=== PATIENT | male | born 1925 | race Caucasian/White ===

== ENCOUNTER → 2016-12-21 | Emergency (ER) | payer MEDICARE, BC ==
[~2016-12-21] VITALS: Ht 172.7 cm; Wt 65.8 kg
[~2016-12-21] MED LIST: IV NS 0.9% 0 ML ONE; IV NS 0.9% 500 ML BAG IV ONE; IV NS 0.9% 500 ML IV ONE; IV SET PRIMARY 1 EA INFUS.SET MC ONE; IV SET PRIMARY PUMP SET 1 EA INFUS.SET MC ONE; MECLIZINE HCL 12.5 MG TABLET PO ONE; MECLIZINE HCL 25 MG TABLET ONE; MORPHINE SULFATE INJ 2 MG/ML DISP.SYRIN ONE; ONDANSETRON HCL/PF 4 MG/2 ML VIAL ONE
[2016-12-21 13:19] LABS: BASOPHILS # (AUTO) 0.1 /CMM (0.0-0.2); BASOPHILS % (AUTO) 1.1 % (0.0-2.0); DIFF TOTAL % 100 %; EOSINOPHILS % (AUTO) 0.5 % (0.0-6.0); HEMATOCRIT 43 % (39-51); HEMOGLOBIN 14.3 g/dL (13.5-17.5); LYMPHOCYTES # (AUTO) 1.5 /CMM (0.8-4.8); LYMPHOCYTES % (AUTO) 16.2 % (20.0-44.0); MEAN CORPUSCULAR HEMOGLOBIN 31 PG (26.0-33.0); MEAN CORPUSCULAR HGB CONC 33 g/dl (31.0-36.0); MEAN CORPUSCULAR VOLUME 94 fL (80-96); MONOCYTES # (AUTO) 0.5 /CMM (0.1-1.30); MONOCYTES % (AUTO) 5.3 % (2.0-12.0); NEUTROPHILS # (AUTO) 7.4 /CMM (1.8-8.9); NEUTROPHILS % (AUTO) 76.9 % (43.0-81.0); PLATELET COUNT (AUTO) 266 /CMM (150-450); RED BLOOD CELL COUNT(AUTO) 4.61 MIL/uL (4.5-6.0); WHITE BLOOD COUNT (AUTO) 9.5 K/uL (4.3-11.0)
[2016-12-21 13:33] LABS: ANION GAP 11 (5-14); CARBON DIOXIDE 30 mmol/L (21-32); CHLORIDE 105 mmol/L (98-107); GLUCOSE 104 mg/dL (74-106); POTASSIUM 4.2 mmol/L (3.5-5.1); SODIUM SERUM 142 mmol/L (136-145); UREA NITROGEN, BLOOD 15 mg/dL (7-18)
[2016-12-21 13:36] LABS: PROTHROMBIN TIME 10.5 SECS (9.5-12.7)
[2016-12-21 13:40] LABS: TROPONIN I < 0.017 ng/mL (0.00-0.056)
[2016-12-21 13:44] LABS: ALANINE AMINOTRANSFERASE 19 U/L (12-78); ALBUMIN 3.8 g/dL (3.4-5.0); ASPARTATE AMINOTRANSFERASE 18 U/L (15-37); BILIRUBIN,DIRECT 0.1 mg/dL (0.0-0.2); BILIRUBIN,TOTAL 0.7 mg/dL (0.2-1.0); INDIRECT BILIRUBIN 0.6 mg/dL (0.0-1.1); TOTAL PROTEIN, SERUM 7.1 g/dL (6.4-8.2)
[2016-12-21 14:05] LABS: ADD UA MICROSCOPIC YES; KETONES,URINE Negative (NEGATIVE); LEUKOCYTE ESTERASE ,URINE Negative (NEGATIVE)
[2016-12-21 14:41] LABS: ADD URINE CULTURE NO; WBC,URINE 0-2 /HPF (0-3)
[2016-12-21 15:36] VITALS: BP 140/78
[2016-12-21 16:12] LABS: BAND % (MANUAL) 1 % (0.0-5.0); LYMPHOCYTES % (MANUAL) 23 % (16-48)
[2016-12-21 16:13] LABS: BASOPHILS % (MANUAL) 0 % (0.0-2.0); EOSINOPHILS % (MANUAL) 0 % (0-4); PLATELET ESTIMATE ADEQUATE; RBC MORPHOLOGY COMMENT NORMAL RBC MORPH
== END | disposition home or self-care (01) ==
LOC: ER 12:38
DX: R42 Dizziness and giddiness (principal); R55 Syncope and collapse; G20 Parkinson's disease; Z95.0 Presence of cardiac pacemaker; H40.9 Unspecified glaucoma; Z88.2 Allergy status to sulfonamides; Z88.6 Allergy status to analgesic agent
CPT/HCPCS: 36415; 71010; 80048; 80076; 81001; 84484; 85025; 85730; 93005; 99285; A4606; A6407; J7040; J8597; 81000-TC; J2270; J2405; J7030; Z7610